=== PATIENT | female | born 1955 | race Caucasian/White ===

== ENCOUNTER 2023-04-07 12:02 | Emergency (ER) | payer OTHER ==
[2023-04-07 12:34] VITALS: BP 165/86; PULSE 77; RESP 19; BMI 35.9
[2023-04-07 12:35] VITALS: TEMP 98.6
[2023-04-07] MEDS ORDERED: KETOROLAC TROMETHAMINE 30 MG/1 ML VIAL IM ONE (14:08)
== END 2023-04-07 15:28 | disposition home or self-care (01) ==
LOC: JER 12:02 → JERFT 12:02
PROC: 3E0233Z Introduction of Anti-inflammatory into Muscle, Percutaneous Approach (ICD-10-PCS; principal; 2023-04-07)
DX: M25.532 Pain in left wrist (principal)
CPT/HCPCS: 73110-TC-LT-FY; 73130-TC-LT-FY; 99284-25

== ENCOUNTER 2023-05-07 21:32 | Observation (INO) | payer OTHER ==
[2023-05-07 21:46] VITALS: BMI 35.8
[2023-05-07] MEDS ORDERED: SODIUM CHLORIDE 0.9% 500 ML INFUS.BAG IV ONE (22:15)
[2023-05-07] MEDS ORDERED: FAMOTIDINE 20 MG/50 ML IVPB 20 MG/50 ML MG IVPB ONE ×2 (22:15→22:26)
[2023-05-07] MEDS ORDERED: ACETAMINOPHEN 1000 MG/100 ML BAG IVPB ONE (22:16)
[2023-05-07] MEDS ORDERED: ACETAMINOPHEN INJECTION 100 ML IVPB ONE (22:25)
[2023-05-07 22:35] LABS: EPI CELLS 17 /uL (0-25.1); HYALINE CASTS 1 /uL (0-3.1); PH,URINE 5.5 (5.0-8.0); URINE APPEARANCE CLOUDY; URINE BACTERIA 0 /uL (0-1359); URINE BILIRUBIN NEGATIVE (NEGATIVE); URINE COLOR YELLOW; URINE GLUCOSE (UA) NEGATIVE (NEGATIVE); URINE KETONE NEGATIVE (NEGATIVE); URINE LEUK ESTERASE NEGATIVE (NEGATIVE); URINE NITRITE NEGATIVE (NEGATIVE); URINE PROTEIN 2+ (NEGATIVE); URINE RBC 21 /uL (0-23.9); URINE UROBILINOGEN 0.2 mg/dL (0.2-1.0); URINE WBC 29 /uL (0-25.8)
[2023-05-07 22:37] LABS: EOS % 0.6 % (0-4.5); HEMATOCRIT 36.8 % (32.4-45.2); HEMOGLOBIN 11.6 GM/dL (10.7-15.3); LYMPH % 25.6 % (8-40); MCH 26.4 pg (25.7-33.7); MCHC 31.6 g/dl (32.0-36.0); MEAN CELL VOLUME 83.6 fl (80-96); MEAN PLT VOLUME 8.5 fl (7.5-11.1); MONO % 8.2 % (3.8-10.2); NEUT % 64.6 % (42.8-82.8); PLATELET COUNT 346 10^3/uL (134-434); RDW 14.1 % (11.6-15.6); WHITE BLOOD COUNT 12.5 K/mm3 (4.0-10.0)
[2023-05-07 22:44] LABS: INR 1.02 (0.83-1.09); PROTHROMBIN TIME (PATIENT) 11.8 SEC (9.7-13.0)
[2023-05-07 22:46] LABS: ACTIVATED PTT 32.5 SECONDS (25.2-36.5)
[2023-05-07 23:02] LABS: POTASSIUM 4.9 mmol/L (3.5-5.1)
[2023-05-07 23:06] LABS: ALBUMIN 3.5 g/dl (3.4-5.0); BLOOD UREA NITROGEN 12.5 mg/dL (7-18)
[2023-05-07 23:09] LABS: CREATININE 0.8 mg/dL (0.55-1.3)
[2023-05-07 23:10] LABS: BILIRUBIN,TOTAL 0.3 mg/dL (0.2-1); TOT PROT 7.7 g/dl (6.4-8.2)
[2023-05-07 23:11] LABS: N-TERMINAL BNP 973.4 pg/ml (5-125)
[2023-05-07] MEDS ORDERED: morphine CARPU-JECT 4 MG/1 ML DISP.SYRIN IVPUSH ONE (23:36)
[2023-05-08] MEDS ORDERED: INSULIN SLIDING SCALE (NOVOLOG) 1 VIAL SQ SCH (03:46)
[2023-05-08] MEDS ORDERED: LOSARTAN POTASSIUM 50 MG TABLET PO ONE (04:16)
[2023-05-08] MEDS ORDERED: CEFTRIAXONE 1 GM in DEXTROSE 5%-WATER - 50 ML IVPB ONE ×3 (04:43→05:13)
[2023-05-08] MEDS ORDERED: FUROSEMIDE 40 MG/4 ML INJECTABLE VIAL IVPUSH ONE (04:44)
[2023-05-08] MEDS ORDERED: CEFTRIAXONE 1 GM/50 ML BAG ONE (04:57)
[2023-05-08] MEDS ORDERED: FUROSEMIDE 40 MG/4 ML INJECTABLE VIAL ONE (04:57)
[2023-05-08] MEDS ORDERED: ACETAMINOPHEN 1000 MG/100 ML BAG IVPB PRN (05:09)
[2023-05-08] MEDS: INSULIN SLIDING SCALE (NOVOLOG) 1 VIAL SQ SCH ×3 (06:09→16:26)
[2023-05-08 06:31] LABS: HEMATOCRIT 34.3 % (32.4-45.2); MCH 26.7 pg (25.7-33.7); MCHC 31.9 g/dl (32.0-36.0); MEAN CELL VOLUME 83.8 fl (80-96); MEAN PLT VOLUME 8.6 fl (7.5-11.1); PLATELET COUNT 290 10^3/uL (134-434); RDW 14.2 % (11.6-15.6); WHITE BLOOD COUNT 11.6 K/mm3 (4.0-10.0)
[2023-05-08 06:38] LABS: POTASSIUM 3.9 mmol/L (3.5-5.1)
[2023-05-08 06:41] LABS: ALBUMIN 3.4 g/dl (3.4-5.0); BLOOD UREA NITROGEN 11.5 mg/dL (7-18); CALCIUM 8.6 mg/dL (8.5-10.1); MAGNESIUM 1.1 mg/dL (1.8-2.4)
[2023-05-08 06:44] LABS: CREATININE 0.7 mg/dL (0.55-1.3); PHOSPHOROUS 4.2 mg/dL (2.5-4.9)
[2023-05-08 06:45] LABS: TOT PROT 6.9 g/dl (6.4-8.2)
[2023-05-08 07:13] LABS: BILIRUBIN,TOTAL 0.3 mg/dL (0.2-1)
[2023-05-08 08:53] LABS: EPI CELLS 3 /uL (0-25.1); HYALINE CASTS 1 /uL (0-3.1); PH,URINE 5.5 (5.0-8.0); URINE APPEARANCE CLEAR; URINE BACTERIA 93 /uL (0-1359); URINE BILIRUBIN NEGATIVE (NEGATIVE); URINE COLOR YELLOW; URINE GLUCOSE (UA) NEGATIVE (NEGATIVE); URINE KETONE NEGATIVE (NEGATIVE); URINE LEUK ESTERASE 1+ (NEGATIVE); URINE NITRITE NEGATIVE (NEGATIVE); URINE PROTEIN NEGATIVE (NEGATIVE); URINE RBC 24 /uL (0-23.9); URINE UROBILINOGEN 0.2 mg/dL (0.2-1.0); URINE WBC 1 /uL (0-25.8)
[2023-05-08] MEDS: OMEGA-3 ACID ETHYL ESTERS (FATTY-ACIDS) 1 GM CAPSULE (FP) PO SCH (09:18)
[2023-05-08] MEDS: LOSARTAN POTASSIUM 25 MG TABLET PO SCH (09:18)
[2023-05-08] MEDS: MULTIVITAMINS (DAILY MVI) TABLET (FP) PO SCH (09:18)
[2023-05-08] MEDS: ENOXAPARIN NA (PORCINE) 40 MG/0.4 ML DISP.SYRIN SQ SCH ×2 (09:18→12:04)
[2023-05-08] MEDS: CHOLECALCIFEROL (VIT D3) 1,000 UNIT (25 MCG) TABLET PO SCH (09:18)
[2023-05-08] MEDS: PANTOPRAZOLE 40 MG TABLET PO SCH (09:18)
[2023-05-08] MEDS ORDERED: ASPIRIN COATED 81 MG TABLET.EC PO SCH (10:00)
[2023-05-08] MEDS: FENOFIBRIC ACID 135 MG CAP PO SCH (11:51)
[2023-05-08] MEDS ORDERED: MAGNESIUM SULF 50% (8.12 MEQ/2 ML-1 GM VIAL) IVPB ONE (15:09)
[2023-05-08] MEDS ORDERED: ATORVASTATIN CA 40 MG TABLET (FP) PO SCH (22:00)
[2023-05-08] MEDS: ENOXAPARIN NA (PORCINE) 100 MG/1 ML DISP.SYRIN SQ SCH (22:50)
[2023-05-09 06:36] LABS: BASO % 1.5 % (0-2.0); EOS % 0.8 % (0-4.5); HEMATOCRIT 38.2 % (32.4-45.2); HEMOGLOBIN 12.4 GM/dL (10.7-15.3); LYMPH % 23.2 % (8-40); MCHC 32.3 g/dl (32.0-36.0); MEAN CELL VOLUME 83.5 fl (80-96); MEAN PLT VOLUME 8.6 fl (7.5-11.1); MONO % 8.1 % (3.8-10.2); NEUT % 66.4 % (42.8-82.8); PLATELET COUNT 333 10^3/uL (134-434); RBC 4.58 M/mm3 (3.60-5.2); RDW 13.9 % (11.6-15.6); WHITE BLOOD COUNT 11.3 K/mm3 (4.0-10.0)
[2023-05-09] MEDS: INSULIN SLIDING SCALE (NOVOLOG) 1 VIAL SQ SCH ×3 (06:36→17:07)
[2023-05-09 06:57] LABS: ALBUMIN 3.6 g/dl (3.4-5.0); CALCIUM 9.2 mg/dL (8.5-10.1); MAGNESIUM 1.4 mg/dL (1.8-2.4)
[2023-05-09 06:58] LABS: BLOOD UREA NITROGEN 12.8 mg/dL (7-18)
[2023-05-09 06:59] LABS: CREATININE 0.8 mg/dL (0.55-1.3); PHOSPHOROUS 3.8 mg/dL (2.5-4.9)
[2023-05-09 07:02] LABS: BILIRUBIN,TOTAL 0.3 mg/dL (0.2-1); TOT PROT 7.7 g/dl (6.4-8.2)
[2023-05-09 09:01] VITALS: RESP 17
[2023-05-09] MEDS: MULTIVITAMINS (DAILY MVI) TABLET (FP) PO SCH (09:37)
[2023-05-09] MEDS: CHOLECALCIFEROL (VIT D3) 1,000 UNIT (25 MCG) TABLET PO SCH (09:37)
[2023-05-09] MEDS: FENOFIBRIC ACID 135 MG CAP PO SCH (09:37)
[2023-05-09] MEDS: OMEGA-3 ACID ETHYL ESTERS (FATTY-ACIDS) 1 GM CAPSULE (FP) PO SCH (09:37)
[2023-05-09] MEDS: LOSARTAN POTASSIUM 25 MG TABLET PO SCH (09:37)
[2023-05-09] MEDS: PANTOPRAZOLE 40 MG TABLET PO SCH (09:37)
[2023-05-09] MEDS: ENOXAPARIN NA (PORCINE) 100 MG/1 ML DISP.SYRIN SQ SCH (09:39)
[2023-05-09] MEDS ORDERED: CEFTRIAXONE 1 GM in DEXTROSE 5%-WATER - 50 ML IVPB SCH (10:00)
[2023-05-09] MEDS ORDERED: FUROSEMIDE 40 MG/4 ML INJECTABLE VIAL IVPUSH SCH (10:00)
[2023-05-09] MEDS ORDERED: FUROSEMIDE 40 MG TABLET (FP) PO SCH (12:00)
[2023-05-09] MEDS ORDERED: MAGNESIUM SULF 50% (8.12 MEQ/2 ML-1 GM VIAL) IVPB ONE (12:32)
[2023-05-09 15:54] VITALS: BP 137/73; PULSE 75; TEMP 97.8
[2023-05-09] MEDS ORDERED: GLIMEPIRIDE 2 MG TABLET PO ONE (17:00)
== END 2023-05-09 19:28 | disposition home or self-care (01) ==
LOC: JER 21:32 → JERBED 05-08 02:09 → J4S 05-08 05:46
PROVIDERS: ADMIT Internal Medicine; ATTEND Internal Medicine
PROC: 3E033NZ Introduction of Analgesics, Hypnotics, Sedatives into Peripheral Vein, Percutaneous Approach (ICD-10-PCS; principal; 2023-05-08)
PROC: 3E03329 Introduction of Other Anti-infective into Peripheral Vein, Percutaneous Approach (ICD-10-PCS; 2023-05-08)
PROC: 3E023GC Introduction of Other Therapeutic Substance into Muscle, Percutaneous Approach (ICD-10-PCS; 2023-05-08)
PROC: 3E033GC Introduction of Other Therapeutic Substance into Peripheral Vein, Percutaneous Approach (ICD-10-PCS; 2023-05-08)
PROC: 3E013VG Introduction of Insulin into Subcutaneous Tissue, Percutaneous Approach (ICD-10-PCS; 2023-05-08)
DX: D73.5 Infarction of spleen (principal); R79.9 Abnormal finding of blood chemistry, unspecified; R10.9 Unspecified abdominal pain; E11.9 Type 2 diabetes mellitus without complications; E78.5 Hyperlipidemia, unspecified; I50.9 Heart failure, unspecified; Z29.89 Encounter for other specified prophylactic measures; Z95.2 Presence of prosthetic heart valve; R10.13 Epigastric pain; I09.9 Rheumatic heart disease, unspecified
CPT/HCPCS: 0241U-QW; 36415; 71045-TC-FY; 74177-TC; 80053; 80061; 81003; 81240; 81241; 82962; 83036; 83605; 83690; 83735; 83880; 84100; 84439; 84443; 84484; 85025; 85027; 85300; 85303; 85307; 85597; 85610; 85730; 86146; 86147; 87040; 87086; 93005; 93010; 93306-TC; 93971-TC; 96365; 96366; 96367; 96372; 96375; 99285-25; G0378

== ENCOUNTER 2023-10-05 11:27 | Emergency (ER) | payer OTHER ==
[2023-10-05 11:33] VITALS: RESP 18; TEMP 98.3; BMI 33.6
[2023-10-05 12:55] LABS: HEMATOCRIT 44.1 % (32.4-45.2); HEMOGLOBIN 13.8 GM/dL (10.7-15.3); MCH 25.7 pg (25.7-33.7); MCHC 31.2 g/dl (32.0-36.0); MEAN CELL VOLUME 82.3 fl (80-96); MEAN PLT VOLUME 8.9 fl (7.5-11.1); PLATELET COUNT 315 10^3/uL (134-434); RBC 5.36 M/mm3 (3.60-5.2); RDW 14.5 % (11.6-15.6); WHITE BLOOD COUNT 11.4 K/mm3 (4.0-10.0)
[2023-10-05 12:58] LABS: EPI CELLS 17 /uL (0-25.1); HYALINE CASTS 0 /uL (0-3.1); URINE APPEARANCE CLEAR; URINE BACTERIA 5495 /uL (0-1359); URINE BILIRUBIN NEGATIVE (NEGATIVE); URINE COLOR YELLOW; URINE GLUCOSE (UA) 3+ (NEGATIVE); URINE KETONE NEGATIVE (NEGATIVE); URINE LEUK ESTERASE NEGATIVE (NEGATIVE); URINE NITRITE NEGATIVE (NEGATIVE); URINE PROTEIN 1+ (NEGATIVE); URINE RBC 9 /uL (0-23.9); URINE UROBILINOGEN 0.2 mg/dL (0.2-1.0); URINE WBC 27 /uL (0-25.8)
[2023-10-05 13:07] LABS: INR 1.26 (0.83-1.09); PROTHROMBIN TIME (PATIENT) 14.1 SEC (9.7-13.0)
[2023-10-05 13:09] LABS: ACTIVATED PTT 41.1 SECONDS (25.2-36.5)
[2023-10-05 13:12] LABS: POTASSIUM 4.6 mmol/L (3.5-5.1)
[2023-10-05 13:14] LABS: CALCIUM 9.2 mg/dL (8.5-10.1)
[2023-10-05 13:15] LABS: ALBUMIN 3.6 g/dl (3.4-5.0); BLOOD UREA NITROGEN 19.9 mg/dL (7-18); MAGNESIUM 1.8 mg/dL (1.8-2.4)
[2023-10-05] MEDS ORDERED: FAMOTIDINE 20 MG TABLET ONE (13:16)
[2023-10-05] MEDS ORDERED: ACETAMINOPHEN INJECTION 100 ML IVPB ONE (13:16)
[2023-10-05] MEDS ORDERED: MAG HYDROX/AL HYDROX/SIMETH 30 ML UNIT-DOSE CUP ONE (13:17)
[2023-10-05 13:18] LABS: CREATININE 0.9 mg/dL (0.55-1.3)
[2023-10-05 13:20] LABS: BILIRUBIN,TOTAL 0.3 mg/dL (0.2-1); TOT PROT 7.8 g/dl (6.4-8.2)
[2023-10-05 13:24] LABS: LACTIC ACID 2.9 mmol/L (0.4-2.0)
[2023-10-05] MEDS: MAG HYDROX/AL HYDROX/SIMETH 30 ML UNIT-DOSE CUP PO ONE (13:34)
[2023-10-05] MEDS: FAMOTIDINE 20 MG TABLET PO ONE (13:34)
[2023-10-05] MEDS: ACETAMINOPHEN 1000 MG/100 ML BAG IVPB ONE (13:34)
[2023-10-05 14:00] LABS: ANISOCYTOSIS 0; MACROCYTOSIS 0
[2023-10-05] MEDS: SODIUM CHLORIDE 0.9% 500 ML INFUS.BAG IV ONE (14:02)
[2023-10-05 17:09] VITALS: BP 143/65; PULSE 60
[2023-10-05 18:08] LABS: URINE APPEARANCE CLEAR; URINE COLOR YELLOW
[2023-10-05 18:09] LABS: PH,URINE 5.5 (5.0-8.0); URINE BILIRUBIN NEGATIVE (NEGATIVE); URINE GLUCOSE (UA) >=1000 (NEGATIVE); URINE KETONE NEGATIVE (NEGATIVE)
[2023-10-05 18:10] LABS: EPI CELLS 21 /uL (0-25.1); HYALINE CASTS 0.3 /uL (0-3.1); URINE BACTERIA 601 /uL (0-1359); URINE LEUK ESTERASE NEGATIVE (NEGATIVE); URINE NITRITE NEGATIVE (NEGATIVE); URINE PROTEIN 30 (NEGATIVE); URINE RBC 11 /uL (0-23.9); URINE UROBILINOGEN 0.2 mg/dL (0.2-1.0); URINE WBC 51 /uL (0-25.8)
[2023-10-05 18:13] LABS: YEAST FEW (NEGATIVE)
== END 2023-10-05 17:36 | disposition home or self-care (01) ==
LOC: JER 11:27
PROC: 3E030NZ Introduction of Analgesics, Hypnotics, Sedatives into Peripheral Vein, Open Approach (ICD-10-PCS; principal; 2023-10-05)
DX: R10.13 Epigastric pain (principal); R07.2 Precordial pain; R60.0 Localized edema
CPT/HCPCS: 36415; 71046-TC-FY; 74174-TC; 80053; 81003; 83605; 83690; 83735; 84484; 85025; 85610; 85730; 86850; 86900; 86901; 87086; 87186; 93005; 93010; 99285-25; J0131

== ENCOUNTER 2024-05-12 14:13 | Observation (INO) | payer OTHER ==
[2024-05-12 17:09] LABS: BASO % 0.7 % (0-2.0); EOS % 1.2 % (0-4.5); HEMATOCRIT 45.6 % (32.4-45.2); HEMOGLOBIN 14.5 GM/dL (10.7-15.3); LYMPH % 19.9 % (8-40); MCH 26.1 pg (25.7-33.7); MCHC 31.8 g/dl (32.0-36.0); MEAN CELL VOLUME 82.1 fl (80-96); MEAN PLT VOLUME 8.3 fl (7.5-11.1); MONO % 6.8 % (3.8-10.2); NEUT % 71.4 % (42.8-82.8); PLATELET COUNT 276 10^3/uL (134-434); RBC 5.55 M/mm3 (3.60-5.2); RDW 14.2 % (11.6-15.6); WHITE BLOOD COUNT 10.3 K/mm3 (4.0-10.0)
[2024-05-12 17:39] LABS: CHLORIDE 106 mmol/L (98-107); POTASSIUM 4.5 mmol/L (3.5-5.1); SODIUM 139 mmol/L (136-145)
[2024-05-12 17:42] LABS: CALCIUM 9.6 mg/dL (8.5-10.1); GLUCOSE,RANDOM 97 mg/dL (74-106)
[2024-05-12 17:43] LABS: ALBUMIN 3.7 g/dl (3.4-5.0); ANION GAP 11 mmol/L (4-13); BLOOD UREA NITROGEN 18.7 mg/dL (7-18); CO2 23 mmol/L (21-32)
[2024-05-12 17:46] LABS: CREATININE 0.7 mg/dL (0.55-1.3); SGOT/AST 21 U/L (15-37); SGPT/ALT 22 U/L (13-61)
[2024-05-12 17:47] LABS: BILIRUBIN,TOTAL 0.3 mg/dL (0.2-1); TOT PROT 7.4 g/dl (6.4-8.2)
[2024-05-12 17:48] LABS: ALK PHOS 51 U/L (45-117)
[2024-05-12 17:58] LABS: ERYTHROCYTE SEDIMENTATION RATE 9 mm/hr (0-30)
[2024-05-12 18:49] LABS: HIV INTERPRETATION NEGATIVE (NEGATIVE)
[2024-05-12] MEDS: INSULIN ASPART SLIDING SCALE (NOVOLOG) 1 VIAL SQ SCH (21:57)
[2024-05-12] MEDS ORDERED: ASPIRIN 81 MG CHEWABLE TABLETS ONE (22:00)
[2024-05-13] MEDS: ATORVASTATIN CA 80 MG TABLET (FP) PO ONE
[2024-05-13] MEDS ORDERED: ATORVASTATIN CA 80 MG TABLET (FP) ONE (00:48)
[2024-05-13] MEDS: ATORVASTATIN CA 80 MG TABLET (FP) PO SCH ×2 (00:52)
[2024-05-13] MEDS: ASPIRIN 81 MG CHEWABLE TABLETS PO ONE ×3 (01:42→01:58)
[2024-05-13] MEDS ORDERED: APIXABAN 5 MG TABLET ONE (01:42)
[2024-05-13] MEDS: APIXABAN 5 MG TABLET PO ONE (01:48)
[2024-05-13 06:29] LABS: POTASSIUM 4.1 mmol/L (3.5-5.1)
[2024-05-13 06:33] LABS: CALCIUM 9.4 mg/dL (8.5-10.1)
[2024-05-13 06:34] LABS: ALBUMIN 3.6 g/dl (3.4-5.0); BLOOD UREA NITROGEN 15.2 mg/dL (7-18); MAGNESIUM 1.3 mg/dL (1.8-2.4)
[2024-05-13 06:36] LABS: CREATININE 0.7 mg/dL (0.55-1.3)
[2024-05-13 06:37] LABS: PHOSPHOROUS 3.9 mg/dL (2.5-4.9)
[2024-05-13 06:38] LABS: CHOLESTEROL 183 mg/dL (50-200); TOT PROT 7.1 g/dl (6.4-8.2)
[2024-05-13 06:39] LABS: LDL CHOLESTEROL (ONLY SJRH) 101 mg/dL (5-100)
[2024-05-13 06:40] LABS: BILIRUBIN,TOTAL 0.3 mg/dL (0.2-1)
[2024-05-13 06:41] LABS: HDL CHOLESTEROL 42 mg/dL (40-60)
[2024-05-13 06:43] LABS: BASO % 0.9 % (0-2.0); EOS % 1.9 % (0-4.5); HEMATOCRIT 43.7 % (32.4-45.2); HEMOGLOBIN 14.3 GM/dL (10.7-15.3); LYMPH % 24.5 % (8-40); MCH 26.7 pg (25.7-33.7); MCHC 32.6 g/dl (32.0-36.0); MEAN CELL VOLUME 81.9 fl (80-96); MONO % 9.4 % (3.8-10.2); NEUT % 63.3 % (42.8-82.8); PLATELET COUNT 259 10^3/uL (134-434); RBC 5.34 M/mm3 (3.60-5.2); WHITE BLOOD COUNT 10.3 K/mm3 (4.0-10.0)
[2024-05-13] MEDS ORDERED: MAGNESIUM SULFATE IN WATER 2 GM/50 ML IVPB IVPB ONE (09:08)
[2024-05-13] MEDS: MAGNESIUM 2GM/50ML STERILE WATER IVPB IVPB ONE (09:32)
[2024-05-13] MEDS ORDERED: APIXABAN 5 MG TABLET PO SCH (10:00)
[2024-05-13] MEDS ORDERED: ASPIRIN COATED 81 MG TABLET.EC PO SCH (10:00)
[2024-05-13] MEDS: ASPIRIN 81 MG CHEWABLE TABLETS PO SCH (10:25)
[2024-05-13] MEDS: MULTIVITAMINS (DAILY MVI) TABLET (FP) PO SCH (10:25)
[2024-05-13] MEDS: CHOLECALCIFEROL (VIT D3) 1,000 UNIT (25 MCG) TABLET PO SCH (10:25)
[2024-05-13] MEDS: APIXABAN 5 MG TABLET PO SCH (10:25)
[2024-05-13] MEDS: FENOFIBRIC ACID 135 MG CAP PO SCH (10:30)
[2024-05-13] MEDS: LOSARTAN POTASSIUM 50 MG TABLET PO SCH (10:30)
[2024-05-13] MEDS: ESCITALOPRAM OXALATE 10 MG TABLET PO SCH (10:35)
[2024-05-13] MEDS: VIT B COMPLEX PO SCH (20:47)
[2024-05-13] MEDS: ZINC PO SCH (20:47)
[2024-05-13] MEDS: [UNRECOGNIZED DRUG - OTHER] PO SCH (20:47)
[2024-05-13] MEDS: MANGANESE PO SCH (20:47)
[2024-05-13] MEDS: PATIENT'S OWN MEDICATION (NON-FORMULARY) (Omega-3 Fatty Acids [Omega-3] 1,000 MG Capsule) PO SCH (20:47)
[2024-05-13 20:58] VITALS: BMI 33.7
[2024-05-13] MEDS ORDERED: INSULIN ASPART SLIDING SCALE (NOVOLOG) 1 VIAL SQ ONE (21:05)
[2024-05-13] MEDS ORDERED: ROSUVASTATIN CA 20 MG TABLET PO SCH ×2 (22:00)
[2024-05-13] MEDS ORDERED: ATORVASTATIN CA 80 MG TABLET (FP) PO SCH (22:00)
[2024-05-14] MEDS ORDERED: INSULIN ASPART SLIDING SCALE (NOVOLOG) 1 VIAL SQ ONE (07:00)
[2024-05-14 07:18] LABS: HEMATOCRIT 44.2 % (32.4-45.2); HEMOGLOBIN 14.3 GM/dL (10.7-15.3); MCHC 32.5 g/dl (32.0-36.0); MEAN CELL VOLUME 83.2 fl (80-96); MEAN PLT VOLUME 8.2 fl (7.5-11.1); PLATELET COUNT 275 10^3/uL (134-434); RBC 5.31 M/mm3 (3.60-5.2); RDW 13.5 % (11.6-15.6); WHITE BLOOD COUNT 10.4 K/mm3 (4.0-10.0)
[2024-05-14 07:33] LABS: POTASSIUM 4.3 mmol/L (3.5-5.1)
[2024-05-14 07:41] LABS: BLOOD UREA NITROGEN 19.7 mg/dL (7-18); CALCIUM 9.4 mg/dL (8.5-10.1)
[2024-05-14 07:45] LABS: CREATININE 0.9 mg/dL (0.55-1.3)
[2024-05-14 19:02] VITALS: RESP 18
[2024-05-15 07:07] LABS: MCH 26.4 pg (25.7-33.7); MCHC 31.7 g/dl (32.0-36.0); MEAN CELL VOLUME 83.3 fl (80-96); MEAN PLT VOLUME 8.6 fl (7.5-11.1); PLATELET COUNT 289 10^3/uL (134-434); RBC 5.28 M/mm3 (3.60-5.2); RDW 13.6 % (11.6-15.6); WHITE BLOOD COUNT 8.9 K/mm3 (4.0-10.0)
[2024-05-15 07:24] LABS: POTASSIUM 4.6 mmol/L (3.5-5.1)
[2024-05-15 07:30] LABS: BLOOD UREA NITROGEN 25.5 mg/dL (7-18); CALCIUM 9.5 mg/dL (8.5-10.1)
[2024-05-15 07:34] LABS: CREATININE 0.8 mg/dL (0.55-1.3)
[2024-05-15] MEDS: metFORMIN HCL 500 MG TABLET (FP) PO SCH (09:39)
[2024-05-15] MEDS: FUROSEMIDE 20 MG TABLET (FP) PO SCH (09:40)
[2024-05-15 12:44] VITALS: BP 110/56; PULSE 75; TEMP 97.9
== END 2024-05-15 13:28 | disposition home or self-care (01) ==
LOC: JER 14:13 → INTOOBSV 19:18 → JERBED 19:18 → J4S 05-13 18:38
PROVIDERS: ADMIT Internal Medicine; ATTEND Internal Medicine
PROC: 3E033GC Introduction of Other Therapeutic Substance into Peripheral Vein, Percutaneous Approach (ICD-10-PCS; principal; 2024-05-12)
DX: H53.122 Transient visual loss, left eye (principal); D68.59 Other primary thrombophilia; I10 Essential (primary) hypertension; E11.9 Type 2 diabetes mellitus without complications; E78.5 Hyperlipidemia, unspecified; D73.5 Infarction of spleen; I50.32 Chronic diastolic (congestive) heart failure; C79.51 Secondary malignant neoplasm of bone; Z79.622 Long term (current) use of Janus kinase inhibitor; Z79.01 Long term (current) use of anticoagulants; Z95.2 Presence of prosthetic heart valve; Z79.84 Long term (current) use of oral hypoglycemic drugs; D64.89 Other specified anemias
CPT/HCPCS: 36415; 70450-TC; 70496-TC; 70498-TC; 70551-TC; 80048; 80053; 80061; 82607; 82728; 82746; 82962; 83036; 83540; 83550; 83735; 84100; 85025; 85027; 85045; 85651; 86140; 86803; 87389; 93005; 93010; 93306-TC; 93880-TC; 96374; 97116-GP; 97161-GP; 99285-25; G0378

== ENCOUNTER 2024-11-01 15:51 | Inpatient (IN) | payer OTHER ==
[2024-11-01 16:01] VITALS: BMI 31.0
[2024-11-01 16:44] LABS: ABSOLUTE IMMATURE GRANULOCYTES 0.08 x10^3/uL (0.0-0.031); BASOPHILS # 0.06 x10^3/uL (0.01-0.08); EOSINOPHILS # 0.12 x10^3/uL (0.04-0.36); HEMATOCRIT 36.3 % (34.1-44.9); HEMOGLOBIN 11.2 g/dL (11.2-15.7); MCHC 30.9 g/dl (32.2-35.5); MEAN CELL VOLUME 86.2 fl (79.4-94.8); MONOCYTE # 0.81 x10^3/uL (0.24-0.86); MONOCYTE % 6.5 % (4.7-12.5); PLATELET COUNT 405 x10^3/uL (182-369)
[2024-11-01 17:12] LABS: POTASSIUM 4.3 mmol/L (3.5-5.1)
[2024-11-01 17:14] LABS: ALBUMIN 3.5 g/dl (3.4-5.0); CALCIUM 9.6 mg/dL (8.5-10.1)
[2024-11-01 17:15] LABS: BLOOD UREA NITROGEN 17.4 mg/dL (7-18)
[2024-11-01 17:18] LABS: CREATININE 0.8 mg/dL (0.55-1.3)
[2024-11-01 17:19] LABS: BILIRUBIN,TOTAL 0.4 mg/dL (0.2-1); TOT PROT 7.2 g/dl (6.4-8.2)
[2024-11-01 17:22] LABS: N-TERMINAL BNP 1400.9 pg/ml (5-125)
[2024-11-01 18:08] LABS: HCV DIAGNOSTIC IN-HOUSE W/RFLX NON-REACTIVE (NONREACTIVE)
[2024-11-01 18:09] LABS: HIV INTERPRETATION NEGATIVE (NEGATIVE)
[2024-11-01] MEDS ORDERED: FUROSEMIDE 40 MG/4 ML INJECTABLE VIAL ONE (21:34)
[2024-11-01] MEDS: FUROSEMIDE 100 MG/10 ML INJECTABLE VIAL IVPB ONE (21:35)
[2024-11-01] MEDS: APIXABAN 5 MG TABLET PO SCH (22:35)
[2024-11-02] MEDS: INSULIN ASPART SLIDING SCALE (NOVOLOG) 1 VIAL SQ SCH (06:12)
[2024-11-02 06:45] LABS: BASOPHILS # 0.05 x10^3/uL (0.01-0.08); EOSINOPHIL % 1.1 % (0.7-5.8); EOSINOPHILS # 0.13 x10^3/uL (0.04-0.36); HEMATOCRIT 37.1 % (34.1-44.9); HEMOGLOBIN 11.4 g/dL (11.2-15.7); MCHC 30.7 g/dl (32.2-35.5); MEAN CELL VOLUME 85.3 fl (79.4-94.8); MEAN PLT VOLUME 10.3 fl (9.4-12.3); MONOCYTE # 1.06 x10^3/uL (0.24-0.86); MONOCYTE % 8.9 % (4.7-12.5); PLATELET COUNT 407 x10^3/uL (182-369)
[2024-11-02 07:03] LABS: POTASSIUM 4.1 mmol/L (3.5-5.1)
[2024-11-02 07:09] LABS: ALBUMIN 3.5 g/dl (3.4-5.0); CALCIUM 9.9 mg/dL (8.5-10.1)
[2024-11-02 07:10] LABS: BLOOD UREA NITROGEN 16.9 mg/dL (7-18); MAGNESIUM 1.2 mg/dL (1.8-2.4)
[2024-11-02 07:11] LABS: CREATININE 0.7 mg/dL (0.55-1.3)
[2024-11-02 07:12] LABS: BILIRUBIN,TOTAL 0.4 mg/dL (0.2-1); TOT PROT 7.2 g/dl (6.4-8.2)
[2024-11-02] MEDS ORDERED: MAGNESIUM SULF 50% (8.12 MEQ/2 ML-1 GM VIAL) IVPB ONE (07:30)
[2024-11-02] MEDS ORDERED: ENOXAPARIN NA (PORCINE) 40 MG/0.4 ML DISP.SYRIN SQ SCH (10:00)
[2024-11-02] MEDS: FUROSEMIDE 40 MG/4 ML INJECTABLE VIAL IVPUSH SCH (10:44)
[2024-11-02] MEDS: ASPIRIN COATED 81 MG TABLET.EC PO SCH (10:45)
[2024-11-02] MEDS: FENOFIBRIC ACID 135 MG CAP PO SCH (10:45)
[2024-11-02] MEDS: ESCITALOPRAM OXALATE 10 MG TABLET PO SCH (10:45)
[2024-11-02] MEDS: LOSARTAN POTASSIUM 50 MG TABLET PO SCH (10:45)
[2024-11-02] MEDS: MAGNESIUM SULF 50% (8.12 MEQ/2 ML-1 GM VIAL) IVPB ONE (12:28)
[2024-11-02] MEDS: SACUBITRIL/VALSARTAN 49 MG-51 MG TABLET PO SCH (22:17)
[2024-11-03 07:59] LABS: ABSOLUTE IMMATURE GRANULOCYTES 0.09 x10^3/uL (0.0-0.031); BASOPHILS # 0.06 x10^3/uL (0.01-0.08); EOSINOPHIL % 1.2 % (0.7-5.8); EOSINOPHILS # 0.14 x10^3/uL (0.04-0.36); HEMATOCRIT 39.4 % (34.1-44.9); HEMOGLOBIN 12.1 g/dL (11.2-15.7); MCHC 30.7 g/dl (32.2-35.5); MEAN CELL VOLUME 85.5 fl (79.4-94.8); MEAN PLT VOLUME 10.3 fl (9.4-12.3); MONOCYTE # 0.84 x10^3/uL (0.24-0.86); PLATELET COUNT 439 x10^3/uL (182-369)
[2024-11-03 08:08] LABS: POTASSIUM 3.9 mmol/L (3.5-5.1)
[2024-11-03 08:12] LABS: ALBUMIN 3.5 g/dl (3.4-5.0); BLOOD UREA NITROGEN 27.6 mg/dL (7-18); CALCIUM 10.1 mg/dL (8.5-10.1)
[2024-11-03 08:15] LABS: CREATININE 0.7 mg/dL (0.55-1.3)
[2024-11-03 08:17] LABS: BILIRUBIN,TOTAL 0.5 mg/dL (0.2-1); TOT PROT 7.5 g/dl (6.4-8.2)
[2024-11-03] MEDS ORDERED: REGADENOSON 0.4 MG/5 ML PRE-FILLED SYRINGE IVPUSH ONE (09:52)
[2024-11-03] MEDS: REGADENOSON 0.4 MG/5 ML PRE-FILLED SYRINGE IVPUSH ONE (10:50)
[2024-11-03] MEDS: EMPAGLIFLOZIN (JARDIANCE) 25 MG TABLET PO SCH (12:19)
[2024-11-03 15:13] VITALS: PULSE 84
[2024-11-03 18:27] VITALS: BP 107/70; RESP 17; TEMP 98
== END 2024-11-03 21:24 | disposition short-term general hospital (02) | DRG 314 ==
LOC: JER 15:51 → JERBED 19:12 → J4W 22:23 → OBSVTOIN 11-03 14:46
PROVIDERS: ADMIT Hospitalist; ATTEND Internal Medicine
DX: T82.857A Stenosis of other cardiac prosthetic devices, implants and grafts, initial encounter (principal); I50.33 Acute on chronic diastolic (congestive) heart failure; I25.10 Atherosclerotic heart disease of native coronary artery without angina pectoris; E78.5 Hyperlipidemia, unspecified; E11.9 Type 2 diabetes mellitus without complications; I11.0 Hypertensive heart disease with heart failure; D69.6 Thrombocytopenia, unspecified; Z95.2 Presence of prosthetic heart valve; Y83.8 Other surgical procedures as the cause of abnormal reaction of the patient, or of later complication, without mention of misadventure at the time of the procedure
CPT/HCPCS: 0241U-QW; 36415; 71046-TC-FY; 78452-TC; 80053; 82962; 83735; 83880; 84100; 84484; 85025; 86803; 87389; 93005; 93010; 93017; 93306-TC; 93308; 97116-GP; 97161-GP; 99285-25; A9502; G0378; J2785

== ENCOUNTER 2024-11-24 13:17 | Emergency (ER) | payer OTHER ==
[2024-11-24 13:55] VITALS: BP 121/68; PULSE 89; RESP 18; TEMP 98.6; BMI 68.7
[2024-11-24] MEDS ORDERED: LIDOCAINE HCL 1%, 10 MG/ML (20ML VIAL) ONE (13:58)
[2024-11-24] MEDS ORDERED: LIDOCAINE 1%/EPI 1:100000 (20 ML MULTI DOSE VIAL) ONE (14:05)
[2024-11-24] MEDS ORDERED: DIPHTH,PERTUSS(ACELL),TET 0.5 ML DISP.SYRIN IM ONE (14:52)
[2024-11-24] MEDS: DIPHTH,PERTUSS(ACELL),TET 0.5 ML DISP.SYRIN IM ONE (14:56)
[2024-11-24] MEDS ORDERED: BACITRACIN ZINC 15 GM TUBE TOPICAL OINTMENT TP ONE (15:27)
[2024-11-24] MEDS ORDERED: BACITRACIN 0.9 GM PACKET ONE (15:33)
== END 2024-11-24 16:19 | disposition home or self-care (01) ==
LOC: JER 13:17
PROC: 0HQ0XZZ Repair Scalp Skin, External Approach (ICD-10-PCS; principal; 2024-11-24)
PROC: 3E0234Z Introduction of Serum, Toxoid and Vaccine into Muscle, Percutaneous Approach (ICD-10-PCS; 2024-11-24)
DX: S01.01XA Laceration without foreign body of scalp, initial encounter (principal); Z23 Encounter for immunization; W08.XXXA Fall from other furniture, initial encounter
CPT/HCPCS: 12001-25; 70450-TC; 72125-TC; 90471; 90715; 99285-25